=== PATIENT | female | born 1965 | race Caucasian/White ===

== ENCOUNTER 2018-07-20 16:49 | Emergency (ER) | payer OTHER ==
[~2018-07-20] VITALS: Ht 165.1 cm; Wt 64.0 kg
[~2018-07-20 16:49] MED LIST: LEVOTHYROXINE
[2018-07-20] MEDS ORDERED: IBUPROFEN 600MG TABLET PO ONE (18:30)
[2018-07-20 19:18] VITALS: BP 118/66
== END 2018-07-20 19:19 | disposition home or self-care (01) ==
LOC: ER 16:58
DX: S00.83XA Contusion of other part of head, initial encounter (principal); S13.4XXA Sprain of ligaments of cervical spine, initial encounter; S46.902A Unspecified injury of unspecified muscle, fascia and tendon at shoulder and upper arm level, left arm, initial encounter; S46.901A Unspecified injury of unspecified muscle, fascia and tendon at shoulder and upper arm level, right arm, initial encounter; V49.49XA Driver injured in collision with other motor vehicles in traffic accident, initial encounter; Y93.89 Activity, other specified; Y92.410 Unspecified street and highway as the place of occurrence of the external cause
CPT/HCPCS: 99282